=== PATIENT | male | born 1965 ===

== ENCOUNTER 2025-01-02 13:01 | Emergency (ER) | payer OTHER ==
[~2025-01-02] VITALS: Ht 182.9 cm; Wt 109.0 kg
[2025-01-02 13:09] VITALS: O2SAT 94
[2025-01-02] MEDS ORDERED: IBUP-2029 MT (14:06)
[2025-01-02] MEDS: KETOROLAC 30MG/ML VIAL IM ONE (14:19)
[2025-01-02 14:22] VITALS: BP 152/90; PULSE 88; RESP 16; TEMP 37; O2SAT 94
== END 2025-01-02 14:23 | disposition home or self-care (01) ==
LOC: ER 13:01
DX: S43.401A Unspecified sprain of right shoulder joint, initial encounter (principal); I10 Essential (primary) hypertension; X58.XXXA Exposure to other specified factors, initial encounter; Y93.89 Activity, other specified; Y92.89 Other specified places as the place of occurrence of the external cause; Y99.8 Other external cause status
CPT/HCPCS: 99283; 96372; J1885